=== PATIENT | male | born 1975 | race Two or more races ===

== ENCOUNTER 2022-09-06 17:36 | Inpatient (IN) | payer OTHER, MEDICAID ==
[~2022-09-06] VITALS: Ht 177.8 cm; Wt 126.9 kg
[2022-09-06] MEDS ORDERED: NITROGLYCERIN 0.4 MG SL TAB SL ONE (18:15)
[2022-09-06] MEDS ORDERED: ONDANSETRON HCL 4 MG/2 ML VIAL IV ONE (18:15)
[2022-09-06] MEDS ORDERED: ASPirin 325 MG TAB PO ONE (18:15)
[2022-09-06] MEDS ORDERED: MORPHINE SULFATE 4 MG/ML SYR/VIAL IV ONE (18:15)
[2022-09-06 18:38] LABS: Basophils # (auto) 0.1 10 ^3/uL (0-0.2); Basophils % (auto) 0.7 % (0.0-2.0); Eosinophils # (auto) 0.1 10 ^3/uL (0-0.8); Eosinophils % (auto) 1.2 % (0.0-7.0); Hematocrit 34.7 % (41.0-53.0); Hemoglobin 11.6 g/dL (13.5-17.5); Lymphocytes # (auto) 2.5 10 ^3/uL (0.4-5.4); Lymphocytes % (auto) 30.2 % (10.0-50.0); Mean Corpuscular Hemoglobin 25.7 pg (28.0-32.0); Mean Corpuscular Hgb Conc. 33.4 g/dL (32.0-36.0); Monocytes # (auto) 0.9 10 ^3/uL (0-1.3); Monocytes % (auto) 11.4 % (0.0-12.0); Neutrophils # (auto) 4.6 10 ^3/uL (1.6-8.6); Neutrophils % (auto) 56.5 % (37.0-80.0); Nucleated Red Blood Cells % 0.2 %; Red Cell Distribution Width 18.2 % (11.8-14.3); White Blood Cell 8.2 10^3/uL (4.4-10.8)
[2022-09-06 20:37] LABS: Albumin 3.2 g/dL (3.4-5.0); BUN/Creatinine Ratio 17.2 (10.0-20.0); Calcium 8.5 mg/dL (8.5-10.1); Potassium 4.1 mmol/L (3.5-5.1)
[2022-09-06 20:40] LABS: Bilirubin, Total 0.2 mg/dL (0.2-1.0); Total Protein 7.1 g/dL (6.4-8.2)
[2022-09-06] MEDS ORDERED: ACETAMINOPHEN 325 MG TAB PO PRN (21:45)
[2022-09-06] MEDS ORDERED: HYDROcodone-ACET 5/325MG TAB PO PRN (21:45)
[2022-09-06] MEDS ORDERED: NITROGLYCERIN 0.4 MG SL TAB SL PRN (21:45)
[2022-09-07] MEDS: MORPHINE SULFATE INJ 2 MG/ml SYRG IV PRN (02:10)
[2022-09-07] MEDS: PROPRANOLOL HCL 20 MG TAB PO SCH ×3 (02:11→22:27)
[2022-09-07] MEDS: TEMAZEPAM 15 MG CAP PO PRN (02:12)
[2022-09-07] MEDS: ATORVASTATIN 20 MG TAB PO SCH ×2 (02:12→22:27)
[2022-09-07] MEDS ORDERED: HYDROmorphone HCL 2 MG/ML VL/or syr IV ONE (04:00)
[2022-09-07 07:22] LABS: Potassium 4.3 mmol/L (3.5-5.1)
[2022-09-07 07:24] LABS: Eosinophils # (auto) 0.1 10 ^3/uL (0-0.8); Hemoglobin 10.5 g/dL (13.5-17.5); Monocytes # (auto) 0.7 10 ^3/uL (0-1.3); Neutrophils # (auto) 2.6 10 ^3/uL (1.6-8.6)
[2022-09-07 07:27] LABS: Basophils # (auto) 0 10 ^3/uL (0-0.2); Basophils % (auto) 0.8 % (0.0-2.0); Eosinophils % (auto) 2.1 % (0.0-7.0); Hematocrit 30.8 % (41.0-53.0); Lymphocytes # (auto) 2.1 10 ^3/uL (0.4-5.4); Lymphocytes % (auto) 37.5 % (10.0-50.0); Mean Corpuscular Volume 76.4 fL (80.0-100.0); Monocytes % (auto) 12.6 % (0.0-12.0); Nucleated Red Blood Cells % 0.1 %; Red Blood Cells 4.03 10^6/uL (4.5-5.90); Red Cell Distribution Width 17.8 % (11.8-14.3); White Blood Cell 5.6 10^3/uL (4.4-10.8)
[2022-09-07 07:29] LABS: BUN/Creatinine Ratio 21.1 (10.0-20.0); Calcium 8.3 mg/dL (8.5-10.1)
[2022-09-07] MEDS ORDERED: RIVAROXABAN 20 MG TAB PO SCH (10:00)
[2022-09-07] MEDS ORDERED: ASPirin 81 mg TAB PO SCH (10:00)
[2022-09-07] MEDS: CLOPIDOGREL BISULFATE 75 MG TAB PO SCH (10:05)
[2022-09-07] MEDS: PANTOPRAZOLE 40 MG TAB PO SCH (10:05)
[2022-09-07] MEDS: LISINOPRIL 5 MG TAB PO SCH (10:06)
[2022-09-07] MEDS ORDERED: ATORVASTATIN 20 MG TAB ONE (22:26)
[2022-09-07 23:27] VITALS: BP 128/70
[2022-09-08] MEDS: TEMAZEPAM 15 MG CAP PO PRN (00:10)
[2022-09-08] MEDS ORDERED: LITH300C3 PO (02:47)
[2022-09-08] MEDS ORDERED: TRAZ1TAB12 PO (02:47)
[2022-09-08] MEDS ORDERED: QUET50TA PO (02:47)
[2022-09-08] MEDS ORDERED: OLAN20TA PO (02:47)
[2022-09-08] MEDS ORDERED: DIVA500T4 PO (02:47)
[2022-09-08] MEDS ORDERED: GABA300C10 PO (02:47)
[2022-09-08] MEDS ORDERED: QUET200T4 PO (02:58)
[2022-09-08] MEDS ORDERED: ATO40T PO (02:58)
[2022-09-08] MEDS ORDERED: CLOP75TA28 PO (02:58)
[2022-09-08] MEDS ORDERED: AML5T PO (02:58)
[2022-09-08] MEDS ORDERED: BUPR100T15 PO (02:58)
[2022-09-08] MEDS ORDERED: BENZ1TAB2 PO (03:08)
[2022-09-08 05:00] VITALS: BP 103/38
[2022-09-08 05:40] LABS: Urine Bacteria NONE SEEN /hpf (None Seen); Urine Blood Negative /uL (Negative); Urine Specific Gravity 1.008 (1.001-1.035); Urine WBC <1 /hpf (0 - 3)
[2022-09-08 05:52] LABS: Alcohol, Urine < 3.0 mg/dL (0-10); Amphetamine Screen, Urine NEGATIVE (NEGATIVE); Barbiturate Scree,Urine NEGATIVE (NEGATIVE); Benzodiazephine Screen, Urine NEGATIVE (NEGATIVE); Cannabinoid Screen, Urine NEGATIVE (NEGATIVE); Cocaine Screen, Urine NEGATIVE (NEGATIVE); Opiate Scree,Urine NEGATIVE (NEGATIVE); Phencyclidine Screen, Urine NEGATIVE (NEGATIVE)
[2022-09-08 06:46] LABS: Basophils # (auto) 0 10 ^3/uL (0-0.2); Hemoglobin 10.8 g/dL (13.5-17.5); Monocytes # (auto) 0.7 10 ^3/uL (0-1.3); Neutrophils # (auto) 2.8 10 ^3/uL (1.6-8.6)
[2022-09-08 06:49] LABS: Basophils % (auto) 0.5 % (0.0-2.0); Eosinophils # (auto) 0.2 10 ^3/uL (0-0.8); Eosinophils % (auto) 2.8 % (0.0-7.0); Hematocrit 34.1 % (41.0-53.0); Lymphocytes % (auto) 35.5 % (10.0-50.0); Mean Corpuscular Hemoglobin 25.7 pg (28.0-32.0); Mean Corpuscular Hgb Conc. 31.8 g/dL (32.0-36.0); Mean Corpuscular Volume 80.8 fL (80.0-100.0); Monocytes % (auto) 12.5 % (0.0-12.0); Neutrophils % (auto) 48.7 % (37.0-80.0); Nucleated Red Blood Cells % 0.1 %; Red Blood Cells 4.22 10^6/uL (4.5-5.90); Red Cell Distribution Width 17.6 % (11.8-14.3); White Blood Cell 5.6 10^3/uL (4.4-10.8)
[2022-09-08 06:56] LABS: INR 1.05 (0.9-1.15); Partial Thromboplastin Time 27.2 sec (24.6-33.4)
[2022-09-08 07:27] LABS: BUN/Creatinine Ratio 18.3 (10.0-20.0); Calcium 8.5 mg/dL (8.5-10.1)
[2022-09-08 08:00] VITALS: BP 107/64
[2022-09-08 09:00] VITALS: BP 107/64
[2022-09-08] MEDS: MORPHINE SULFATE INJ 2 MG/ml SYRG IV PRN (09:50)
[2022-09-08] MEDS: LISINOPRIL 5 MG TAB PO SCH (10:00)
[2022-09-08] MEDS: CLOPIDOGREL BISULFATE 75 MG TAB PO SCH (10:00)
[2022-09-08] MEDS: PANTOPRAZOLE 40 MG TAB PO SCH (10:00)
[2022-09-08] MEDS: PROPRANOLOL HCL 20 MG TAB PO SCH ×2 (10:00→23:24)
[2022-09-08 12:20] VITALS: BP 112/73
[2022-09-08] MEDS ORDERED: fentaNYL CITRATE 100 MCG/2 ML VL ONE (17:18)
[2022-09-08] MEDS ORDERED: VERAPAMIL 2.5MG/ML INJ 2ML VIAL IV ONE (17:18)
[2022-09-08] MEDS ORDERED: HEPARIN SODIUM (PORCINE) 5000 UNITS/ML 1ML VIAL ONE (17:18)
[2022-09-08] MEDS ORDERED: MIDAZOLAM HCL 2MG/2ML 2ml VIAL (1mg/ml) ONE (17:18)
[2022-09-08] MEDS ORDERED: LIDOCAINE 2%HCL (LOCAL ANESTH.) INJ 10ml MDV ONE (17:18)
[2022-09-08] MEDS ORDERED: IODIXANOL 320MG/ML 100ML BTL IV ONE (17:18)
[2022-09-08] MEDS ORDERED: HEPARIN IN NS 1000Units/500mL 1,500 ML ONE (17:33)
[2022-09-08] MEDS ORDERED: LIDOCAINE 2%HCL (LOCAL ANESTH.) INJ 20ML MDV ONE (17:33)
[2022-09-08] MEDS ORDERED: VANCOMYCIN 1GM/250ML 250 ML IV ONE (18:04)
[2022-09-08] MEDS ORDERED: HYDROmorphone HCL 2 MG/ML VL/or syr ONE (18:16)
[2022-09-08] MEDS ORDERED: FUROSEMIDE 20 MG/2 ML VIAL ONE (18:27)
[2022-09-08 22:00] VITALS: BP 132/66
[2022-09-08] MEDS: QUEtiapine FUMARATE 25 MG TAB PO SCH (23:21)
[2022-09-08] MEDS: LITHIUM CARBONATE 300 MG TAB PO SCH (23:21)
[2022-09-08] MEDS: traZODone HCL 50 MG TAB PO SCH (23:22)
[2022-09-08] MEDS: OLANZapine 5 MG TAB PO SCH (23:23)
[2022-09-08] MEDS: GABAPENTIN 300 MG CAP PO SCH (23:23)
[2022-09-08] MEDS: ATORVASTATIN 20 MG TAB PO SCH (23:23)
[2022-09-09 05:00] VITALS: BP 100/49
[2022-09-09 09:00] VITALS: BP 116/72
[2022-09-09] MEDS: QUEtiapine FUMARATE 25 MG TAB PO SCH (10:51)
[2022-09-09] MEDS: CLOPIDOGREL BISULFATE 75 MG TAB PO SCH (10:51)
[2022-09-09] MEDS: GABAPENTIN 300 MG CAP PO SCH ×2 (10:52→21:53)
[2022-09-09] MEDS: LITHIUM CARBONATE 300 MG TAB PO SCH ×2 (10:52→21:55)
[2022-09-09] MEDS: PANTOPRAZOLE 40 MG TAB PO SCH (10:52)
[2022-09-09] MEDS: PROPRANOLOL HCL 20 MG TAB PO SCH ×2 (10:53→21:54)
[2022-09-09] MEDS: LISINOPRIL 5 MG TAB PO SCH (10:53)
[2022-09-09] MEDS ORDERED: CHOL20007 OR (11:04)
[2022-09-09] MEDS ORDERED: HYDR50CA PO (11:04)
[2022-09-09] MEDS ORDERED: GABA300C10 PO (11:04)
[2022-09-09 12:41] VITALS: BP 109/76
[2022-09-09 16:37] VITALS: BP 108/67
[2022-09-09] MEDS: QUEtiapine FUMARATE 100 MG TAB PO SCH (21:53)
[2022-09-09] MEDS: traZODone HCL 50 MG TAB PO SCH (21:55)
[2022-09-09] MEDS: OLANZapine 5 MG TAB PO SCH (21:55)
[2022-09-09] MEDS: ATORVASTATIN 20 MG TAB PO SCH (21:56)
[2022-09-09 22:00] VITALS: BP 132/86
[2022-09-10 05:00] VITALS: BP 98/55
[2022-09-10 09:12] VITALS: BP 119/64
[2022-09-10] MEDS: GABAPENTIN 300 MG CAP PO SCH ×2 (10:35→23:00)
[2022-09-10] MEDS: LITHIUM CARBONATE 300 MG TAB PO SCH ×2 (10:35→22:59)
[2022-09-10] MEDS: CLOPIDOGREL BISULFATE 75 MG TAB PO SCH (10:35)
[2022-09-10] MEDS: PANTOPRAZOLE 40 MG TAB PO SCH (10:35)
[2022-09-10] MEDS: QUEtiapine FUMARATE 100 MG TAB PO SCH ×2 (10:36→22:57)
[2022-09-10] MEDS: PROPRANOLOL HCL 20 MG TAB PO SCH ×2 (10:36→23:01)
[2022-09-10] MEDS: LISINOPRIL 5 MG TAB PO SCH (10:36)
[2022-09-10 13:50] VITALS: BP 131/66
[2022-09-10 17:06] VITALS: BP 103/58
[2022-09-10 22:00] VITALS: BP 109/72
[2022-09-10] MEDS: traZODone HCL 50 MG TAB PO SCH (22:59)
[2022-09-10] MEDS: OLANZapine 5 MG TAB PO SCH (23:00)
[2022-09-10] MEDS: ATORVASTATIN 20 MG TAB PO SCH (23:00)
[2022-09-11 05:00] VITALS: BP_SYST 118; BP_SYST 96; BP_DIAS 47; BP_DIAS 55
[2022-09-11 08:00] VITALS: BP 109/72
[2022-09-11 09:10] VITALS: BP 154/84
[2022-09-11] MEDS: GABAPENTIN 300 MG CAP PO SCH ×2 (09:55→23:11)
[2022-09-11] MEDS: QUEtiapine FUMARATE 100 MG TAB PO SCH ×2 (09:56→23:11)
[2022-09-11] MEDS: LISINOPRIL 5 MG TAB PO SCH (09:56)
[2022-09-11] MEDS: PANTOPRAZOLE 40 MG TAB PO SCH (09:57)
[2022-09-11] MEDS: LITHIUM CARBONATE 300 MG TAB PO SCH ×2 (09:57→23:10)
[2022-09-11] MEDS: PROPRANOLOL HCL 20 MG TAB PO SCH ×2 (09:57→23:12)
[2022-09-11] MEDS: CLOPIDOGREL BISULFATE 75 MG TAB PO SCH (09:57)
[2022-09-11 13:00] VITALS: BP 115/66
[2022-09-11 17:07] VITALS: BP 119/77
[2022-09-11] MEDS: MORPHINE SULFATE INJ 2 MG/ml SYRG IV PRN (21:30)
[2022-09-11 22:00] VITALS: BP 110/64
[2022-09-11] MEDS: traZODone HCL 50 MG TAB PO SCH (23:09)
[2022-09-11] MEDS: OLANZapine 5 MG TAB PO SCH (23:10)
[2022-09-11] MEDS: ATORVASTATIN 20 MG TAB PO SCH (23:12)
[2022-09-12] VITALS (7 sets, daily range): BP systolic 100–132; BP diastolic 52–80
[2022-09-12] MEDS: CLOPIDOGREL BISULFATE 75 MG TAB PO SCH (09:22)
[2022-09-12] MEDS: LITHIUM CARBONATE 300 MG TAB PO SCH ×2 (09:23→23:02)
[2022-09-12] MEDS: QUEtiapine FUMARATE 100 MG TAB PO SCH ×2 (09:24→23:05)
[2022-09-12] MEDS: PROPRANOLOL HCL 20 MG TAB PO SCH ×2 (09:24→23:04)
[2022-09-12] MEDS: GABAPENTIN 300 MG CAP PO SCH ×2 (09:24→23:05)
[2022-09-12] MEDS: PANTOPRAZOLE 40 MG TAB PO SCH (09:25)
[2022-09-12] MEDS: LISINOPRIL 5 MG TAB PO SCH (09:25)
[2022-09-12] MEDS: MORPHINE SULFATE INJ 2 MG/ml SYRG IV PRN ×3 (14:46→23:58)
[2022-09-12] MEDS: OLANZapine 5 MG TAB PO SCH (23:00)
[2022-09-12] MEDS: traZODone HCL 50 MG TAB PO SCH (23:01)
[2022-09-12] MEDS: ATORVASTATIN 20 MG TAB PO SCH (23:02)
[2022-09-12] MEDS: TEMAZEPAM 15 MG CAP PO PRN (23:57)
[2022-09-13 04:53] VITALS: BP 115/75
[2022-09-13] MEDS: CLOPIDOGREL BISULFATE 75 MG TAB PO SCH (08:07)
[2022-09-13] MEDS: QUEtiapine FUMARATE 100 MG TAB PO SCH ×2 (08:08→21:37)
[2022-09-13] MEDS: PANTOPRAZOLE 40 MG TAB PO SCH (08:08)
[2022-09-13] MEDS: PROPRANOLOL HCL 20 MG TAB PO SCH ×2 (08:08→21:53)
[2022-09-13] MEDS: GABAPENTIN 300 MG CAP PO SCH ×2 (08:08→21:30)
[2022-09-13] MEDS: LITHIUM CARBONATE 300 MG TAB PO SCH ×2 (08:08→21:30)
[2022-09-13] MEDS: MORPHINE SULFATE INJ 2 MG/ml SYRG IV PRN ×4 (08:09→21:54)
[2022-09-13] MEDS: LISINOPRIL 5 MG TAB PO SCH (08:09)
[2022-09-13 08:39] VITALS: BP 124/59
[2022-09-13 17:12] VITALS: BP 110/59
[2022-09-13] MEDS: ATORVASTATIN 20 MG TAB PO SCH (21:30)
[2022-09-13] MEDS: OLANZapine 5 MG TAB PO SCH (21:37)
[2022-09-13] MEDS: traZODone HCL 50 MG TAB PO SCH (21:38)
[2022-09-13 22:00] VITALS: BP 113/57
[2022-09-14] MEDS: MORPHINE SULFATE INJ 2 MG/ml SYRG IV PRN ×5 (04:29→20:52)
[2022-09-14 05:00] VITALS: BP 94/46
[2022-09-14] MEDS: PANTOPRAZOLE 40 MG TAB PO SCH (08:24)
[2022-09-14] MEDS: GABAPENTIN 300 MG CAP PO SCH ×2 (08:24→22:16)
[2022-09-14] MEDS: LITHIUM CARBONATE 300 MG TAB PO SCH ×2 (08:24→22:10)
[2022-09-14] MEDS: PROPRANOLOL HCL 20 MG TAB PO SCH ×2 (08:25→22:14)
[2022-09-14] MEDS: LISINOPRIL 5 MG TAB PO SCH (08:25)
[2022-09-14] MEDS: CLOPIDOGREL BISULFATE 75 MG TAB PO SCH (08:25)
[2022-09-14] MEDS: QUEtiapine FUMARATE 100 MG TAB PO SCH ×2 (08:25→22:16)
[2022-09-14 08:39] VITALS: BP 126/49
[2022-09-14 12:40] VITALS: BP 105/59
[2022-09-14 16:39] VITALS: BP 111/68
[2022-09-14 22:00] VITALS: BP 133/77
[2022-09-14] MEDS: ATORVASTATIN 20 MG TAB PO SCH (22:08)
[2022-09-14] MEDS: traZODone HCL 50 MG TAB PO SCH (22:09)
[2022-09-14] MEDS: OLANZapine 5 MG TAB PO SCH (22:16)
[2022-09-15] MEDS: MORPHINE SULFATE INJ 2 MG/ml SYRG IV PRN ×5 (01:02→21:33)
[2022-09-15 05:00] VITALS: BP 111/60
[2022-09-15 08:45] VITALS: BP 124/61
[2022-09-15] MEDS: LITHIUM CARBONATE 300 MG TAB PO SCH ×2 (10:00→21:35)
[2022-09-15] MEDS: PANTOPRAZOLE 40 MG TAB PO SCH (10:47)
[2022-09-15] MEDS: PROPRANOLOL HCL 20 MG TAB PO SCH ×2 (10:51→21:34)
[2022-09-15] MEDS: GABAPENTIN 300 MG CAP PO SCH ×2 (10:52→21:36)
[2022-09-15] MEDS: QUEtiapine FUMARATE 100 MG TAB PO SCH ×2 (10:52→21:36)
[2022-09-15] MEDS: CLOPIDOGREL BISULFATE 75 MG TAB PO SCH (10:53)
[2022-09-15] MEDS: LISINOPRIL 5 MG TAB PO SCH (10:54)
[2022-09-15 13:06] VITALS: BP 107/58
[2022-09-15 16:46] VITALS: BP 114/57
[2022-09-15] MEDS: traZODone HCL 50 MG TAB PO SCH (21:34)
[2022-09-15] MEDS: ATORVASTATIN 20 MG TAB PO SCH (21:35)
[2022-09-15] MEDS: OLANZapine 5 MG TAB PO SCH (21:36)
[2022-09-15 22:00] VITALS: BP 119/73
[2022-09-16 05:00] VITALS: BP 91/44
[2022-09-16 05:51] VITALS: BP 126/73
[2022-09-16] MEDS: MORPHINE SULFATE INJ 2 MG/ml SYRG IV PRN ×4 (05:57→20:01)
[2022-09-16 08:44] VITALS: BP 131/75
[2022-09-16] MEDS: PANTOPRAZOLE 40 MG TAB PO SCH (10:44)
[2022-09-16] MEDS: LITHIUM CARBONATE 300 MG TAB PO SCH ×2 (10:45→22:12)
[2022-09-16] MEDS: GABAPENTIN 300 MG CAP PO SCH ×2 (10:45→22:10)
[2022-09-16] MEDS: LISINOPRIL 5 MG TAB PO SCH (10:46)
[2022-09-16] MEDS: QUEtiapine FUMARATE 100 MG TAB PO SCH ×2 (10:46→22:12)
[2022-09-16] MEDS: CLOPIDOGREL BISULFATE 75 MG TAB PO SCH (10:46)
[2022-09-16] MEDS: PROPRANOLOL HCL 20 MG TAB PO SCH ×2 (10:48→22:12)
[2022-09-16 13:00] VITALS: BP 106/63
[2022-09-16 16:53] VITALS: BP 114/57
[2022-09-16 22:03] VITALS: BP_SYST 105; BP_SYST 145; BP_DIAS 56; BP_DIAS 79
[2022-09-16] MEDS: OLANZapine 5 MG TAB PO SCH (22:10)
[2022-09-16] MEDS: traZODone HCL 50 MG TAB PO SCH (22:11)
[2022-09-16] MEDS: ATORVASTATIN 20 MG TAB PO SCH (22:12)
[2022-09-17] MEDS: MORPHINE SULFATE INJ 2 MG/ml SYRG IV PRN ×4 (00:23→20:21)
[2022-09-17 04:39] VITALS: BP 100/50
[2022-09-17 08:09] VITALS: BP 115/57
[2022-09-17] MEDS: LITHIUM CARBONATE 300 MG TAB PO SCH ×2 (09:42→22:07)
[2022-09-17] MEDS: PROPRANOLOL HCL 20 MG TAB PO SCH ×2 (09:42→22:09)
[2022-09-17] MEDS: GABAPENTIN 300 MG CAP PO SCH ×2 (09:43→22:10)
[2022-09-17] MEDS: PANTOPRAZOLE 40 MG TAB PO SCH (09:43)
[2022-09-17] MEDS: CLOPIDOGREL BISULFATE 75 MG TAB PO SCH (09:43)
[2022-09-17] MEDS: LISINOPRIL 5 MG TAB PO SCH (09:43)
[2022-09-17] MEDS: QUEtiapine FUMARATE 100 MG TAB PO SCH ×2 (09:43→22:09)
[2022-09-17 12:39] VITALS: BP 110/57
[2022-09-17 17:00] VITALS: BP 118/73
[2022-09-17 20:22] VITALS: BP 113/87
[2022-09-17] MEDS: ATORVASTATIN 20 MG TAB PO SCH (22:07)
[2022-09-17] MEDS: traZODone HCL 50 MG TAB PO SCH (22:08)
[2022-09-17] MEDS: OLANZapine 5 MG TAB PO SCH (22:08)
[2022-09-17 22:26] VITALS: BP 106/98
[2022-09-18] MEDS: MORPHINE SULFATE INJ 2 MG/ml SYRG IV PRN ×4 (06:44→22:23)
[2022-09-18 09:00] VITALS: BP 103/50
[2022-09-18] MEDS: LISINOPRIL 5 MG TAB PO SCH (10:00)
[2022-09-18] MEDS: GABAPENTIN 300 MG CAP PO SCH ×2 (10:00→22:21)
[2022-09-18] MEDS: PANTOPRAZOLE 40 MG TAB PO SCH (10:00)
[2022-09-18] MEDS: PROPRANOLOL HCL 20 MG TAB PO SCH ×2 (10:00→22:20)
[2022-09-18] MEDS: QUEtiapine FUMARATE 100 MG TAB PO SCH ×2 (10:00→22:21)
[2022-09-18] MEDS: LITHIUM CARBONATE 300 MG TAB PO SCH ×2 (10:00→22:19)
[2022-09-18] MEDS: CLOPIDOGREL BISULFATE 75 MG TAB PO SCH (10:00)
[2022-09-18 13:00] VITALS: BP 122/73
[2022-09-18 17:00] VITALS: BP 116/61
[2022-09-18 22:00] VITALS: BP 143/79
[2022-09-18] MEDS: ATORVASTATIN 20 MG TAB PO SCH (22:10)
[2022-09-18] MEDS: OLANZapine 5 MG TAB PO SCH (22:10)
[2022-09-18] MEDS: traZODone HCL 50 MG TAB PO SCH (22:18)
[2022-09-19] VITALS (7 sets, daily range): BP systolic 92–125; BP diastolic 39–79
[2022-09-19] MEDS: MORPHINE SULFATE INJ 2 MG/ml SYRG IV PRN ×5 (02:28→21:03)
[2022-09-19] MEDS: GABAPENTIN 300 MG CAP PO SCH ×2 (10:10→21:19)
[2022-09-19] MEDS: LISINOPRIL 5 MG TAB PO SCH (10:10)
[2022-09-19] MEDS: PANTOPRAZOLE 40 MG TAB PO SCH (10:11)
[2022-09-19] MEDS: PROPRANOLOL HCL 20 MG TAB PO SCH ×2 (10:11→21:18)
[2022-09-19] MEDS: LITHIUM CARBONATE 300 MG TAB PO SCH ×2 (10:12→21:19)
[2022-09-19] MEDS: CLOPIDOGREL BISULFATE 75 MG TAB PO SCH (10:12)
[2022-09-19] MEDS: QUEtiapine FUMARATE 100 MG TAB PO SCH ×2 (10:12→21:19)
[2022-09-19] MEDS: OLANZapine 5 MG TAB PO SCH (21:09)
[2022-09-19] MEDS: traZODone HCL 50 MG TAB PO SCH (21:10)
[2022-09-19] MEDS: ATORVASTATIN 20 MG TAB PO SCH (21:11)
[2022-09-20 04:41] VITALS: BP 110/55
[2022-09-20] MEDS: MORPHINE SULFATE INJ 2 MG/ml SYRG IV PRN ×4 (08:46→23:12)
[2022-09-20 09:00] VITALS: BP 118/67
[2022-09-20] MEDS: PANTOPRAZOLE 40 MG TAB PO SCH (10:44)
[2022-09-20] MEDS: CLOPIDOGREL BISULFATE 75 MG TAB PO SCH (10:44)
[2022-09-20] MEDS: LISINOPRIL 5 MG TAB PO SCH (10:44)
[2022-09-20] MEDS: QUEtiapine FUMARATE 100 MG TAB PO SCH ×2 (10:46→21:57)
[2022-09-20] MEDS: LITHIUM CARBONATE 300 MG TAB PO SCH ×2 (10:50→21:54)
[2022-09-20] MEDS: PROPRANOLOL HCL 20 MG TAB PO SCH ×2 (10:51→21:56)
[2022-09-20] MEDS: GABAPENTIN 300 MG CAP PO SCH ×2 (10:53→21:56)
[2022-09-20 13:00] VITALS: BP 118/54
[2022-09-20 17:00] VITALS: BP 124/58
[2022-09-20] MEDS: traZODone HCL 50 MG TAB PO SCH (21:55)
[2022-09-20] MEDS: ATORVASTATIN 20 MG TAB PO SCH (21:56)
[2022-09-20] MEDS: OLANZapine 5 MG TAB PO SCH (21:57)
[2022-09-20 22:00] VITALS: BP 121/77
[2022-09-21] MEDS: MORPHINE SULFATE INJ 2 MG/ml SYRG IV PRN ×3 (04:34→13:09)
[2022-09-21 05:00] VITALS: BP 124/69
[2022-09-21] MEDS: QUEtiapine FUMARATE 100 MG TAB PO SCH (08:49)
[2022-09-21] MEDS: CLOPIDOGREL BISULFATE 75 MG TAB PO SCH (08:50)
[2022-09-21] MEDS: GABAPENTIN 300 MG CAP PO SCH (08:50)
[2022-09-21] MEDS: PANTOPRAZOLE 40 MG TAB PO SCH (08:50)
[2022-09-21] MEDS: LITHIUM CARBONATE 300 MG TAB PO SCH (08:50)
[2022-09-21] MEDS: PROPRANOLOL HCL 20 MG TAB PO SCH (08:51)
[2022-09-21] MEDS: LISINOPRIL 5 MG TAB PO SCH (08:51)
[2022-09-21 14:00] VITALS: BP 113/68
== END 2022-09-21 15:35 | DRG 286 ==
LOC: ER 17:36 → TELE 21:41 → TELE-EAST 09-07 23:01 → TELE-WESTW 09-10 07:39 → WEST WING 09-14 14:48
PROVIDERS: ADMIT Nurse Practitioner; ATTEND Family Medicine
PROC: 4A023N7 Measurement of Cardiac Sampling and Pressure, Left Heart, Percutaneous Approach (ICD-10-PCS; principal; 2022-09-08)
PROC: B211YZZ Fluoroscopy of Multiple Coronary Arteries using Other Contrast (ICD-10-PCS; 2022-09-08)
PROC: B215YZZ Fluoroscopy of Left Heart using Other Contrast (ICD-10-PCS; 2022-09-08)
DX: I25.110 Atherosclerotic heart disease of native coronary artery with unstable angina pectoris (principal); I50.43 Acute on chronic combined systolic (congestive) and diastolic (congestive) heart failure; U07.1 COVID-19; I24.9 Acute ischemic heart disease, unspecified; R45.851 Suicidal ideations; F31.5 Bipolar disorder, current episode depressed, severe, with psychotic features; I11.0 Hypertensive heart disease with heart failure; E11.9 Type 2 diabetes mellitus without complications; F43.10 Post-traumatic stress disorder, unspecified; J44.9 Chronic obstructive pulmonary disease, unspecified; I25.2 Old myocardial infarction; Z88.6 Allergy status to analgesic agent; Z98.61 Coronary angioplasty status; Z90.49 Acquired absence of other specified parts of digestive tract; Z82.49 Family history of ischemic heart disease and other diseases of the circulatory system; Z88.2 Allergy status to sulfonamides; Z83.3 Family history of diabetes mellitus; Z83.42 Family history of familial hypercholesterolemia
CPT/HCPCS: 36415; 71046; 80048; 80053; 80061; 80307; 81001; 82962; 83036; 83735; 83880; 84443; 84484; 85025; 85379; 85610; 85730; 87426; 93005; 93306; 93458; 96374; 96375; 99152; 99153; C1894; G0378; J2001; J2250; J2405; Q9967